=== PATIENT | female | born 1950 | race Caucasian/White ===

== ENCOUNTER → 2020-07-15 | Outpatient (CLI) | payer MEDICARE, OTHER | END | disposition home or self-care (01) | LOC: STAR 15:52 | PROVIDERS: ATTEND Anesthesiology | DX: Z01.812 Encounter for preprocedural laboratory examination (principal); Z20.828 Contact with and (suspected) exposure to other viral communicable diseases | CPT/HCPCS: 87635 ==

== ENCOUNTER 2020-07-21 06:36 | Day surgery (SDC) | payer MEDICARE, OTHER ==
[~2020-07-21] VITALS: Ht 157.5 cm; Wt 89.0 kg
[~2020-07-21 06:36] MED LIST: ALBU8.5H8 INH; ASCO100018 PO; B CO1TAB14 PO; CALC-525 PO; CHOL10003 PO; CYAN25003 PO; HYDR-3246 PO; UBID1CAP43 PO
[2020-07-21] MEDS ORDERED: CHLORHEXIDINE 15 ML UDC MM STA (06:56)
[2020-07-21] MEDS ORDERED: LACTATED RINGERS 1,000 ML IV SCH (07:00)
[2020-07-21 07:09] VITALS: BP 144/88
[2020-07-21] MEDS ORDERED: PROPOFOL 50 ML ONE ×2 (07:52→08:50)
[2020-07-21] MEDS ORDERED: MIDAZOLAM 1 MG/ML, 2ML ONE (08:02)
[2020-07-21] MEDS ORDERED: ONDANSETRON 2MG/ML, 2ML IVPush PRN (08:30)
[2020-07-21] MEDS ORDERED: PROMETHAZINE 25 MG/ML, 1ML IVPush PRN (08:30)
[2020-07-21] MEDS ORDERED: ACETAMINOPHEN 325 MG TABLET PO PRN (08:30)
[2020-07-21] MEDS ORDERED: KETOROLAC 30 MG/1 ML IV PRN (08:30)
== END 2020-07-21 11:00 | disposition home or self-care (01) ==
LOC: OUT 06:36
PROVIDERS: ATTEND Internal Medicine Gastroenterology
DX: R06.00 Dyspnea, unspecified (principal); K44.9 Diaphragmatic hernia without obstruction or gangrene; K29.50 Unspecified chronic gastritis without bleeding; C85.20 Mediastinal (thymic) large B-cell lymphoma, unspecified site; R59.0 Localized enlarged lymph nodes; I12.9 Hypertensive chronic kidney disease with stage 1 through stage 4 chronic kidney disease, or unspecified chronic kidney disease; N18.30 Chronic kidney disease, stage 3 unspecified; E66.9 Obesity, unspecified; Z68.37 Body mass index [BMI] 37.0-37.9, adult; Z79.899 Other long term (current) drug therapy; Z88.5 Allergy status to narcotic agent; Z90.49 Acquired absence of other specified parts of digestive tract; Z98.890 Other specified postprocedural states
CPT/HCPCS: 43239; 43242; 88172; 88173; 88177; 88305; 88341; 88342; 88360; 93005; J2250; J2704; J7120

== ENCOUNTER → 2020-08-18 | Outpatient (CLI) | payer MEDICARE, OTHER | END | disposition home or self-care (01) | LOC: CFH 09:46 | PROVIDERS: ATTEND Internal Medicine | DX: C82.12 Follicular lymphoma grade II, intrathoracic lymph nodes (principal); R59.1 Generalized enlarged lymph nodes | CPT/HCPCS: 78815; A9552 ==

== ENCOUNTER 2020-08-19 06:13 | Day surgery (SDC) | payer MEDICARE, OTHER ==
[~2020-08-19] VITALS: Ht 157.5 cm; Wt 89.9 kg
[2020-08-19] MEDS ORDERED: SODIUM CHLORIDE 0.9% 1,000 ML IV SCH (07:00)
[2020-08-19] MEDS ORDERED: PLEASE ENTER HEIGHT AND WEIGHT MC SCH (07:00)
[2020-08-19 07:29] VITALS: BP 131/87
[2020-08-19] MEDS ORDERED: LIDOCAINE 1%, 10ML ONE (07:40)
[2020-08-19 07:45] LABS: BASOPHILS % (AUTO) 1 % (0-1); EOSINOPHILS % (AUTO) 2 % (1-7); LYMPHOCYTES % (AUTO) 20 % (22-44); MEAN CORPUSCULAR HEMOGLOBIN 30.7 pg (27.0-34.8); MEAN CORPUSCULAR HGB CONC 33.6 g/dL (32.4-35.8); MEAN PLATELET VOLUME 9.3 fL (7.4-10.4); MONOCYTES % (AUTO) 7 % (2-9); NEUTROPHILS % (AUTO) 70 % (42-75); PLATELET COUNT 354 x10^3/uL (130-400); RED BLOOD COUNT 4.89 x10^6/uL (3.82-5.3); RED CELL DISTRIBUTION WIDTH 13.8 % (9.6-15.2)
[2020-08-19] MEDS ORDERED: FLUMAZENIL 0.1 MG/1 ML, 5ML ONE (07:45)
[2020-08-19] MEDS ORDERED: FENTANYL PF 100 MCG/2ML ONE ×2 (07:45)
[2020-08-19] MEDS ORDERED: NALOXONE 1 MG/ML, 2ML ONE (07:45)
[2020-08-19] MEDS ORDERED: MIDAZOLAM 1 MG/ML, 5ML ONE (07:45)
[2020-08-19 07:50] LABS: MD NO
== END 2020-08-19 09:50 | disposition home or self-care (01) ==
LOC: OUT 06:13
PROVIDERS: ATTEND Internal Medicine
DX: R59.1 Generalized enlarged lymph nodes (principal); C82.12 Follicular lymphoma grade II, intrathoracic lymph nodes; I12.9 Hypertensive chronic kidney disease with stage 1 through stage 4 chronic kidney disease, or unspecified chronic kidney disease; N18.9 Chronic kidney disease, unspecified; Z88.5 Allergy status to narcotic agent; Z79.899 Other long term (current) drug therapy; Z98.890 Other specified postprocedural states; Z90.49 Acquired absence of other specified parts of digestive tract
CPT/HCPCS: 36415; 38222; 77012; 85025; 85060; 85097; 88237; 88264; 88280; 88305; 88311; 88313; 99156; 99157; J2250; J3010; J2310

== ENCOUNTER 2020-11-02 08:32 | Day surgery (SDC) | payer MEDICARE, OTHER ==
[~2020-11-02] VITALS: Ht 157.5 cm; Wt 86.0 kg
[~2020-11-02 08:32] MED LIST changes: -HYDR-3246 PO; +HYDR-3248 PO
[2020-11-02 09:08] VITALS: BP 158/80
[2020-11-02] MEDS ORDERED: CHLORHEXIDINE 15 ML UDC ONE (09:14)
[2020-11-02] MEDS ORDERED: SODIUM CHLORIDE 0.9% 1,000 ML IV SCH (09:30)
[2020-11-02] MEDS ORDERED: CEFAZOLIN PMX 1GM/50ML 50 ML IV ONE (09:30)
[2020-11-02] MEDS ORDERED: LIDOCAINE 1%, 10ML ONE ×2 (10:13→11:08)
[2020-11-02] MEDS ORDERED: LIDOCAINE 1%, 20ML ONE (10:13)
[2020-11-02] MEDS ORDERED: FENTANYL PF 100 MCG/2ML ONE (10:25)
[2020-11-02] MEDS ORDERED: MIDAZOLAM 1 MG/ML, 5ML ONE (10:25)
[2020-11-02] MEDS ORDERED: FLUMAZENIL 0.1 MG/1 ML, 5ML ONE (10:26)
[2020-11-02] MEDS ORDERED: NALOXONE 1 MG/ML, 2ML ONE (10:26)
[2020-11-02] MEDS ORDERED: ONDANSETRON 2MG/ML, 2ML ONE (12:24)
[2020-11-02] MEDS ORDERED: ONDANSETRON 2MG/ML, 2ML IVPush ONE (12:30)
== END 2020-11-02 13:30 | disposition home or self-care (01) ==
LOC: OUT 08:32
PROVIDERS: ATTEND Internal Medicine
DX: C82.12 Follicular lymphoma grade II, intrathoracic lymph nodes (principal); I12.9 Hypertensive chronic kidney disease with stage 1 through stage 4 chronic kidney disease, or unspecified chronic kidney disease; N18.9 Chronic kidney disease, unspecified; J45.909 Unspecified asthma, uncomplicated; Z79.899 Other long term (current) drug therapy; Z88.5 Allergy status to narcotic agent; Z98.890 Other specified postprocedural states
CPT/HCPCS: 36561; 71045; 76937; 77001; 99156; 99157; C1788; J0690; J1642; J2250; J2405; J3010; J7030; J2310

== ENCOUNTER → 2021-01-18 | Outpatient (CLI) | payer MEDICARE ==
[~2021-01-18] MED LIST changes: +GADOTERATE 10 MMOL/20ML SYR ONE
== END | disposition home or self-care (01) ==
LOC: CFH 14:45
PROVIDERS: ATTEND Internal Medicine
DX: C82.12 Follicular lymphoma grade II, intrathoracic lymph nodes (principal); R94.02 Abnormal brain scan
CPT/HCPCS: 70553; A9575